=== PATIENT | male | born 1960 | race Caucasian/White ===

== ENCOUNTER → 2021-01-06 | Outpatient (CLI) | payer BC ==
[2021-01-06 08:25] LABS: HEMOGLOBIN 14.3 gm/dl (14.0-17.5); RED BLOOD COUNT 4.59 M/UL (4.20-5.50); WHITE BLOOD COUNT 4.6 K/UL (4.5-11.0)
[2021-01-06 08:52] LABS: BUN/CREATININE RATIO 14 (0-10)
== END ==
LOC: LAB 06:53
PROVIDERS: Family Medicine
DX: I10 Essential (primary) hypertension (principal); E78.5 Hyperlipidemia, unspecified; I25.10 Atherosclerotic heart disease of native coronary artery without angina pectoris
CPT/HCPCS: 36415; 80053; 80061; 84153; 85027

== ENCOUNTER → 2022-02-02 | Outpatient (CLI) | payer BC ==
[2022-02-02 07:53] LABS: HEMOGLOBIN 15.3 gm/dl (14.0-17.5); RED BLOOD COUNT 4.99 M/UL (4.20-5.50); WHITE BLOOD COUNT 4.7 K/UL (4.5-11.0)
[2022-02-02 08:22] LABS: BUN/CREATININE RATIO 19 (0-10)
== END ==
LOC: LAB 07:09
PROVIDERS: Family Medicine
DX: E78.5 Hyperlipidemia, unspecified (principal); I10 Essential (primary) hypertension; M72.2 Plantar fascial fibromatosis
CPT/HCPCS: 36415; 80053; 80061; 84153; 84443; 85027